=== PATIENT | female | born 1980 | race Caucasian/White ===

== ENCOUNTER 2016-09-27 09:23 | Emergency (ER) | payer BC ==
[~2016-09-27 09:23] MED LIST: IBUP80TA PO; PERCOCET PO; VITAPRTA PO
--- NOTE | 2016-09-27 10:00 | EDDOCDS ---
Nurse's Notes [facility] Name: Jennifer Paris Age: 35 yrs Sex: Female : 1980 Arrival Date: 09/27/2016 Time: 09:23 Bed Triage 3 Private MD: Zeenat Garcia Diagnosis: Anxiety disorder, unspecified Presentation: 09/27 09:28 Presenting complaint: Patient states: for months having episodes of across the chest srm pain and " feels like her heart is stopping then beating to slow or fast." hx of anxiety. pain doesn't radiate. doesn't feel a crushing feeling- more heart racing, beating too slow or too fast. happens suddenly. Aspirin was not taken prior to arrival. Adult Sepsis Screening: The patient does not have new or worsening altered mentation. Patient's respiratory rate is less than 22. Systolic blood pressure is greater than 100. Patient has a qSOFA score of 0- Negative Sepsis Screen. Suicide/Homicide risk assessment- the patient denies having any suicidal and/or homicidal ideations and does not present with any other emotional, behavioral or mental health complaints. Status: Patient is not a office services assistant or dependent. Transition of care: patient was not received from another setting of care. 09:28 Acuity: ROBERTH Level 3 [facility] 09:28 Method Of Arrival: Walkin/Carried/Asstd srm 09:32 Red Flag criteria, patient assessed and is suitable to finish the RCE Process. srm Triage Assessment: 09:31 General: Appears in no apparent distress, Behavior is appropriate for age, cooperative. srm Pain: Pain currently is 0 out of 10 on a pain scale. At worst was 1 out of 10 on a pain scale. Pt Declines HIV testing. Cardiovascular: Chest pain is described as Pain is 1 out of 10 on a pain scale. radiates Does not radiate. episodes are intermittent began 30 minutes prior to arrival. 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 Prozac 20 mg Oral cap 1 cap once daily - PMHx: Anxiety; - PSHx: ; - Social history: Smoking status: Patient uses tobacco products, current some day smoker. No barriers to communication noted, The patient speaks fluent Serbian, Speaks appropriately for age. - Family history: Not pertinent. - : The pt / caregiver states he / she is not on anticoagulants. Home medication list is obtained from the patient. - Exposure Risk Screening:: None identified. Screenin:57 Screening information is obtained from the patient. Fall risk: No risks identified. jo3 Assistance ADL's: requires no assistance with activities of daily living. Abuse/DV Screen: The patient / caregiver reports he/she is: not in a situation that causes fear, pain or injury. Nutritional screening: No deficits noted. Advance Directives: Currently, there is There is no active DNR order. home support is adequate. Assessment: :57 General: Appears in no apparent distress, comfortable, Behavior is appropriate for age, jo3 cooperative. Neurological: Level of Consciousness is awake, alert, Oriented to person, place, time. Respiratory: Airway is patent Respiratory effort is even, unlabored. Derm: Skin is pink, warm & dry. Vital Signs: 09:25 BP 134 / 86; Pulse 83; Resp 18 S; Temp 96.3(O); Pulse Ox 98% on R/A; Weight 93.44 kg dd6 (R); Height 5 ft. 7 in. (170.18 cm) (R); 09:25 Body Mass Index 32.26 (93.44 kg, 170.18 cm) dd6 Vitals: 09:25 Log In Time: September 27, 2016 at 09:23. dd6 09:26 RN notified that patient meets Red Flag criteria. dd6 ED Course: 09:25 Patient visited by Nathaniel Mcbride PCA. dd6 09:25 Zeenat Garcia MD is Private Physician. dd6 09:25 Patient moved to Waiting dd6 09:29 Patient moved to Pre RCE dd6 09:30 Triage Initiated srm 09:32 Patient moved to Triage 3 srm 09:37 Duran Esquivel PA-C is PHCP. cc10 09:37 Inna Arceo MD is Attending Physician. cc10 09:40 Patient visited by Duran Esquivel PA-C. cc10 09:40 Patient visited by Duran Esquivel PA-C. cc10 09:48 EKG done. (by ED staff). Reviewed by Duran Esquivel PA-C. rn1 09:52 Zeenat Garcia MD is Referral Physician. cc10 09:57 The patient / caregiver is instructed regarding the plan of care and ED course. Cardiac jo3 monitoring not applicable on this patient. 09:57 No IV's were initiated during this patient's visit. No procedures done that require jo3 assistance. 09:58 Patient name changed from Jennifer\\S\\\\S\\[place]\\S\\ to Jennifer\\S\\ \\S\\[place]. EDMS 09:59 [facility] Payment Agreement was scanned into [employer] and attached to record. Order Results: There are currently no results for this order. Outcome: 09:52 Discharge ordered by Provider. cc10 09:57 Discharge Assessment: Patient awake, alert and oriented x 3. No cognitive and/or jo3 functional deficits noted. Patient verbalized understanding of disposition instructions. patient administered narcotics - no. The following High Risk Discharge criteria are identified: None. Discharged to home ambulatory, with family. Condition: stable. No special radiology studies were completed. Property sent home with patient. 09:59 Patient left the ED. jo3 Signatures: [facility] Yesika Strong, RN RN srm Derrell Gamboa, Reg Reg lg Kayli Hendricks RN RN jo3 Nathaniel Mcbride, FIRE BOSS FIRE BOSS dd6 Duran Esquivel, PAMaco PAAr Corley rn1 MTDD
--- NOTE | 2016-09-27 10:00 | EDDOCDS ---
Physician Documentation [facility] Name: Jennifer Paris Age: 35 yrs Sex: Female : 1980 Arrival Date: 09/27/2016 Time: 09:23 Bed Triage 3 Private MD: Zeenat Garcia Disposition: 09/27/16 09:52 Discharged to Home/Self Care. Impression: Anxiety disorder, unspecified. - Condition is Stable. - Discharge Instructions: Panic Attacks. - Medication Reconciliation form. - Follow up: Zeenat Garcia MD; When: Call to arrange an appointment; Reason: Wound/Symptom Recheck, Recheck today's complaints, Worsening of conditions, Continuance of care. - Problem is chronic. - Symptoms are unchanged. Historical: - Allergies: no known allergies; - Home Meds: 1. Prozac 20 mg Oral cap 1 cap once daily - PMHx: Anxiety; - PSHx: ; - Social history: Smoking status: Patient uses tobacco products, current some day smoker. No barriers to communication noted, The patient speaks fluent South Korean, Speaks appropriately for age. - Family history: Not pertinent. - : The pt / caregiver states he / she is not on anticoagulants. Home medication list is obtained from the patient. - Exposure Risk Screening:: None identified. 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 7 in. (170.18 cm) (R); 09:25 Body Mass Index 32.26 (93.44 kg, 170.18 cm) dd6 MDM: 09:34 ECG WITH READING ER PHYS+CARDIAG ordered. EDMS 09:50 Financial registration complete. lg 09:59 [facility] Payment Agreement was scanned into [employer] and attached to record. lg Signatures: Dispatcher [employer] EDMS Yesika Strong RN RN srm Ganter, LoriLee, Reg Reg Kayli Hendricks RN RN jo3 Duran Esquivel, PA-C PA-C cc10 The chart was reviewed and I authenticate all verbal orders and agree with the evaluation and treatment provided.Attachments: 09:59 [facility] Payment Agreement lg MTDD
--- NOTE | 2016-09-27 19:28 | ECGEPIP ---
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
--- NOTE | 2016-09-29 11:00 | EDDOCDS ---
Physician Documentation [facility] Name: Jennifer Paris Age: 35 yrs Sex: Female : 1980 Arrival Date: 09/27/2016 Time: 09:23 Bed Triage 3 Private MD: Zeenat Garcia Disposition: 09/27/16 09:52 Discharged to Home/Self Care. Impression: Anxiety disorder, unspecified. - Condition is Stable. - Discharge Instructions: Panic Attacks. - Medication Reconciliation form. - Follow up: Zeenat Garcia MD; When: Call to arrange an appointment; Reason: Wound/Symptom Recheck, Recheck today's complaints, Worsening of conditions, Continuance of care. - Problem is chronic. - Symptoms are unchanged. Historical: - Allergies: no known allergies; - Home Meds: 1. Prozac 20 mg Oral cap 1 cap once daily - PMHx: Anxiety; - PSHx: ; - Social history: Smoking status: Patient uses tobacco products, current some day smoker. No barriers to communication noted, The patient speaks fluent Turkmen, Speaks appropriately for age. - Family history: Not pertinent. - : The pt / caregiver states he / she is not on anticoagulants. Home medication list is obtained from the patient. - Exposure Risk Screening:: None identified. 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 7 in. (170.18 cm) (R); 09:25 Body Mass Index 32.26 (93.44 kg, 170.18 cm) dd6 MDM: 09:34 ECG WITH READING ER PHYS+CARDIAG ordered. EDMS 09:50 Financial registration complete. lg 09:59 [facility] Payment Agreement was scanned into [employer] and attached to record. lg 13:18 T-Sheet-- Draft Copy was scanned into [employer] and attached to record. gb 13:19 ECG/EKG was scanned into [employer] and attached to record. gb Signatures: Dispatcher [employer] EDMS Yesika Strong RN RN [facility] Ellie De La O Reg Reg gb Derrell Gamboa, Reg Reg lg Kayli Hendricks,RN RN jo3 Duran Esquivel, PATanyaC PATanyaC cc10 The chart was reviewed and I authenticate all verbal orders and agree with the evaluation and treatment provided.Attachments: [facility] Payment Agreement lg 13:18 T-Sheet-- Draft Copy gb 13:19 ECG/EKG gb Chart Complete MTDD
--- NOTE | 2016-09-29 11:00 | EDDOCDS ---
Nurse's Notes [facility] Name: Jennifer Helm Age: 35 yrs Sex: Female : 1980 Arrival Date: 09/27/2016 Time: 09:23 Bed Triage 3 Private MD: Zeenat Garcia Diagnosis: Anxiety disorder, unspecified Presentation: 09/27 09:28 Presenting complaint: Patient states: for months having episodes of across the chest srm pain and " feels like her heart is stopping then beating to slow or fast." hx of anxiety. pain doesn't radiate. doesn't feel a crushing feeling- more heart racing, beating too slow or too fast. happens suddenly. Aspirin was not taken prior to arrival. Adult Sepsis Screening: The patient does not have new or worsening altered mentation. Patient's respiratory rate is less than 22. Systolic blood pressure is greater than 100. Patient has a qSOFA score of 0- Negative Sepsis Screen. Suicide/Homicide risk assessment- the patient denies having any suicidal and/or homicidal ideations and does not present with any other emotional, behavioral or mental health complaints. Status: Patient is not a vehicle service attendant or dependent. Transition of care: patient was not received from another setting of care. 09:28 Acuity: ROBERTH Level 3 [facility] 09:28 Method Of Arrival: Walkin/Carried/Asstd srm 09:32 Red Flag criteria, patient assessed and is suitable to finish the RCE Process. srm Triage Assessment: 09:31 General: Appears in no apparent distress, Behavior is appropriate for age, cooperative. srm Pain: Pain currently is 0 out of 10 on a pain scale. At worst was 1 out of 10 on a pain scale. Pt Declines HIV testing. Cardiovascular: Chest pain is described as Pain is 1 out of 10 on a pain scale. radiates Does not radiate. episodes are intermittent began 30 minutes prior to arrival. 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 Prozac 20 mg Oral cap 1 cap once daily - PMHx: Anxiety; - PSHx: ; - Social history: Smoking status: Patient uses tobacco products, current some day smoker. No barriers to communication noted, The patient speaks fluent Slovak, Speaks appropriately for age. - Family history: Not pertinent. - : The pt / caregiver states he / she is not on anticoagulants. Home medication list is obtained from the patient. - Exposure Risk Screening:: None identified. Screenin:57 Screening information is obtained from the patient. Fall risk: No risks identified. jo3 Assistance ADL's: requires no assistance with activities of daily living. Abuse/DV Screen: The patient / caregiver reports he/she is: not in a situation that causes fear, pain or injury. Nutritional screening: No deficits noted. Advance Directives: Currently, there is There is no active DNR order. home support is adequate. Assessment: :57 General: Appears in no apparent distress, comfortable, Behavior is appropriate for age, jo3 cooperative. Neurological: Level of Consciousness is awake, alert, Oriented to person, place, time. Respiratory: Airway is patent Respiratory effort is even, unlabored. Derm: Skin is pink, warm & dry. Vital Signs: 09:25 BP 134 / 86; Pulse 83; Resp 18 S; Temp 96.3(O); Pulse Ox 98% on R/A; Weight 93.44 kg dd6 (R); Height 5 ft. 7 in. (170.18 cm) (R); 09:25 Body Mass Index 32.26 (93.44 kg, 170.18 cm) dd6 Vitals: 09:25 Log In Time: September 27, 2016 at 09:23. dd6 09:26 RN notified that patient meets Red Flag criteria. dd6 ED Course: 09:25 Patient visited by Nathaniel Mcbride PCA. dd6 09:25 Zeenat Garcia MD is Private Physician. dd6 09:25 Patient moved to Waiting dd6 09:29 Patient moved to Pre RCE dd6 09:30 Triage Initiated srm 09:32 Patient moved to Triage 3 srm 09:37 Duran Esquivel PA-C is PHCP. cc10 09:37 Inna Arceo MD is Attending Physician. cc10 09:40 Patient visited by Duran Esquivel PA-C. cc10 09:40 Patient visited by Duran Esquivel PA-C. cc10 09:48 EKG done. (by ED staff). Reviewed by Duran Esquivel PA-C. rn1 09:52 Zeenat Garcia MD is Referral Physician. cc10 09:57 The patient / caregiver is instructed regarding the plan of care and ED course. Cardiac jo3 monitoring not applicable on this patient. 09:57 No IV's were initiated during this patient's visit. No procedures done that require jo3 assistance. 09:58 Patient name changed from Jennifer\\S\\\\S\\[place]\\S\\ to Jennifer\\S\\ \\S\\[place]. EDMS 09:59 [facility] Payment Agreement was scanned into [employer] and attached to record. lg 13:18 T-Sheet-- Draft Copy was scanned into [employer] and attached to record. gb 13:19 ECG/EKG was scanned into [employer] and attached to record. gb 19:42 EKG-ADULT Returned. 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 cc10 09:57 Discharge Assessment: Patient awake, alert and oriented x 3. No cognitive and/or jo3 functional deficits noted. Patient verbalized understanding of disposition instructions. patient administered narcotics - no. The following High Risk Discharge criteria are identified: None. Discharged to home ambulatory, with family. Condition: stable. No special radiology studies were completed. Property sent home with patient. 09:59 Patient left the ED. jo3 Signatures: Dispatcher [employer] EDMS Yesika Strong RN RN [facility] Ellie De La O, Reg Reg gb Derrell Gamboa, Reg Reg lg Kayli Hendricks,RN RN jo3 Nathaniel Mcbride, OVERLOCK COLLAR SETTER OVERLOCK COLLAR SETTER dd6 Duran Esquivel, SAWYERC PATanyaC cc10 Ar Redman rn1 Chart Complete MTDD
--- NOTE | 2016-09-29 11:00 | EDDOCDS ---
Physician Documentation [facility] Name: Jennifer Paris Age: 35 yrs Sex: Female : 1980 Arrival Date: 09/27/2016 Time: 09:23 Bed Triage 3 Private MD: Zeenat Garcia Disposition: 09/27/16 09:52 Discharged to Home/Self Care. Impression: Anxiety disorder, unspecified. - Condition is Stable. - Discharge Instructions: Panic Attacks. - Medication Reconciliation form. - Follow up: Zeenat Garcia MD; When: Call to arrange an appointment; Reason: Wound/Symptom Recheck, Recheck today's complaints, Worsening of conditions, Continuance of care. - Problem is chronic. - Symptoms are unchanged. Historical: - Allergies: no known allergies; - Home Meds: 1. Prozac 20 mg Oral cap 1 cap once daily - PMHx: Anxiety; - PSHx: ; - Social history: Smoking status: Patient uses tobacco products, current some day smoker. No barriers to communication noted, The patient speaks fluent Ugandan, Speaks appropriately for age. - Family history: Not pertinent. - : The pt / caregiver states he / she is not on anticoagulants. Home medication list is obtained from the patient. - Exposure Risk Screening:: None identified. 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 Vital Signs: 09:25 BP 134 / 86; Pulse 83; Resp 18 S; Temp 96.3(O); Pulse Ox 98% on R/A; Weight 93.44 kg / dd6 206 lbs (R); Height 5 ft. 7 in. (170.18 cm) (R); 09:25 Body Mass Index 32.26 (93.44 kg, 170.18 cm) dd6 MDM: 09:34 ECG WITH READING ER PHYS+CARDIAG ordered. EDMS 09:50 Financial registration complete. lg 09:59 [facility] Payment Agreement was scanned into [employer] and attached to record. lg 13:18 T-Sheet-- Draft Copy was scanned into [employer] and attached to record. gb 13:19 ECG/EKG was scanned into [employer] and attached to record. gb Signatures: Dispatcher [employer] EDMS Yesika Strong RN RN [facility] Ellie De La O Reg Reg gb Derrell Gamboa, Reg Reg lg Kayli Hendricks,RN RN jo3 Duran Esquivel, PATanyaC PATanyaC cc10 The chart was reviewed and I authenticate all verbal orders and agree with the evaluation and treatment provided.Attachments: [facility] Payment Agreement lg 13:18 T-Sheet-- Draft Copy gb 13:19 ECG/EKG gb Chart Complete MTDD
== END 2016-09-27 09:59 | disposition home or self-care (01) ==
LOC: M ED 09:23
DX: F41.0 Panic disorder [episodic paroxysmal anxiety] (principal); Z72.0 Tobacco use; Z79.899 Other long term (current) drug therapy

== ENCOUNTER → 2016-10-11 | Outpatient (REF) | payer BC | LOC: M LAB REF 16:44 | PROVIDERS: ATTEND Physician Assistant | DX: Z20.89 Contact with and (suspected) exposure to other communicable diseases (principal) ==

== ENCOUNTER → 2017-03-12 | Outpatient (CLI) | payer BC ==
[~2017-03-12] MED LIST changes: +PROZ20CA11 PO
[2017-03-12 13:14] LABS: BASO % 0.5 % (0.0-1.0); EOS # 0.2 K/mm3 (0.0-0.50); EOS % 3.5 % (0.0-3.0); LARGE UNSTAINED CELL # 0.1 K/mm3 (0.0-0.4); LARGE UNSTAINED CELL % 2.4 % (0.0-4.0); LYMPH # 2.1 K/mm3 (1.5-4.5); LYMPH % 36.5 % (24.0-44.0); MEAN CORPUSCULAR HEMOGLOBIN 30.2 pg (27.0-33.0); MEAN CORPUSCULAR HGB CONC 34.2 g/dl (32.0-36.5); MEAN CORPUSCULAR VOLUME 88.3 fl (80.0-96.0); MONO # 0.4 K/mm3 (0.0-0.8); MONO % 8.2 % (0.0-5.0); NEUTROPHILS # 2.6 K/mm3 (1.8-7.7); NEUTROPHILS % 48.8 % (36.0-66.0); PLATELET COUNT, AUTOMATED 252 k/mm3 (150-450); RED CELL DISTRIBUTION WIDTH 12.9 % (11.5-14.5); WHITE BLOOD COUNT 5.3 K/mm3 (4.0-10.0)
[2017-03-12 13:55] LABS: ALBUMIN 3.8 GM/DL (3.2-5.2); ALBUMIN/GLOBULIN RATIO 1.27 (1.00-1.93); ALKALINE PHOSPHATASE 51 U/L (45-117); ALT/SGPT 19 U/L (12-78); ANION GAP 5 MEQ/L (8-16); AST/SGOT 12 U/L (15-37); BILIRUBIN,TOTAL 0.3 MG/DL (0.2-1.0); BLOOD UREA NITROGEN 7 MG/DL (7-18); CALCIUM LEVEL 8.5 MG/DL (8.5-10.1); CARBON DIOXIDE LEVEL 28 MEQ/L (21-32); CHLORIDE LEVEL 106 MEQ/L (98-107); CREATININE FOR GFR 0.65 MG/DL (0.55-1.02); FREE T4 0.98 NG/DL (0.76-1.46); GLOMERULAR FILTRATION RATE > 60.0 (>60); GLUCOSE, FASTING 86 MG/DL (70-105); POTASSIUM SERUM 4.5 MEQ/L (3.5-5.1); SODIUM LEVEL 139 MEQ/L (136-145); TOTAL PROTEIN 6.8 GM/DL (6.4-8.2)
== END ==
LOC: M SMT 08:51
PROVIDERS: ATTEND Family Medicine
DX: Z13.29 Encounter for screening for other suspected endocrine disorder (principal); Z13.0 Encounter for screening for diseases of the blood and blood-forming organs and certain disorders involving the immune mechanism

== ENCOUNTER 2017-03-18 08:45 | Emergency (ER) | payer BC ==
[~2017-03-18] VITALS: Ht 170.2 cm; Wt 84.1 kg
[~2017-03-18 08:45] MED LIST changes: -PROZ20CA11 PO
[2017-03-18] MEDS ORDERED: PROZ20CA11 PO (08:53)
[2017-03-18 10:28] LABS: BASO # 0.1 K/mm3 (0.0-0.2); BASO % 0.9 % (0.0-1.0); EOS # 0.3 K/mm3 (0.0-0.50); EOS % 3.7 % (0.0-3.0); LARGE UNSTAINED CELL # 0.2 K/mm3 (0.0-0.4); LARGE UNSTAINED CELL % 2.1 % (0.0-4.0); LYMPH # 2.2 K/mm3 (1.5-4.5); MEAN CORPUSCULAR HEMOGLOBIN 30.2 pg (27.0-33.0); MEAN CORPUSCULAR HGB CONC 34.4 g/dl (32.0-36.5); MEAN CORPUSCULAR VOLUME 87.8 fl (80.0-96.0); MONO # 0.6 K/mm3 (0.0-0.8); NEUTROPHILS # 3.7 K/mm3 (1.8-7.7); NEUTROPHILS % 53.4 % (36.0-66.0); PLATELET COUNT, AUTOMATED 261 k/mm3 (150-450); RED CELL DISTRIBUTION WIDTH 12.6 % (11.5-14.5)
[2017-03-18 10:36] LABS: ANION GAP 4 MEQ/L (8-16); BLOOD UREA NITROGEN 11 MG/DL (7-18); CALCIUM LEVEL 9.2 MG/DL (8.5-10.1); CARBON DIOXIDE LEVEL 28 MEQ/L (21-32); CHLORIDE LEVEL 107 MEQ/L (98-107); CREATININE FOR GFR 0.76 MG/DL (0.55-1.02); GLOMERULAR FILTRATION RATE > 60.0 (>60); GLUCOSE, FASTING 76 MG/DL (70-105); POTASSIUM SERUM 4.3 MEQ/L (3.5-5.1); SODIUM LEVEL 139 MEQ/L (136-145)
--- NOTE | 2017-03-18 10:45 | REP ---
Portable chest, single AP view, the patient sitting, 10:36 a.m.: There are no comparisons. The lung zavala are clear. The cardiac size is normal. The elaine, mediastinum, and bony thorax are unremarkable. Impression: Negative portable chest. Signed by Kerwin Gifford MD 03/18/2017 10:36 A
[2017-03-18 11:11] VITALS: BP 118/66
--- NOTE | 2017-03-18 13:43 | ECGEPIP ---
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
== END 2017-03-18 11:17 | disposition home or self-care (01) ==
LOC: M ED 08:45
DX: R07.89 Other chest pain (principal); F43.0 Acute stress reaction; F17.210 Nicotine dependence, cigarettes, uncomplicated; Z79.899 Other long term (current) drug therapy

== ENCOUNTER → 2017-05-20 | Outpatient (REF) | payer BC ==
[~2017-05-20] MED LIST changes: +PROZ20CA11 PO
== END ==
LOC: M LAB REF 13:50
PROVIDERS: ATTEND Advanced Practice Midwife
DX: Z12.4 Encounter for screening for malignant neoplasm of cervix (principal)

== ENCOUNTER → 2017-05-29 | Outpatient (CLI) | payer BC, SELFPAY ==
--- NOTE | 2017-05-30 03:04 | REP ---
Clinical: Right lower quadrant pelvic pain . Technique: Transabdominal pelvic ultrasound followed by transvaginal examination for better evaluation of the endometrium and adnexa with color Doppler evaluation of the ovaries. Findings: Bladder is unremarkable and measures 9.0 x 8.7 x 8.5 cm . Normal anteverted uterus measures 8.8 x 3.1 x 3.9 cm . The endometrial complex measures 5.4 mm thickness. No discrete uterine or endometrial abnormalities are appreciated. Bilateral ovaries are normal in appearance and vascularity without evidence for torsion. Right ovary measures 2.8 x 2.5 x 1.9 cm ; R I = 0.40 . Left ovary measures 3.1 x 2.4 x 3.1 cm ; R I = 0.56 . No pelvic fluid or adnexal mass lesion . Impression: 1. Normal pelvic ultrasound Signed by Cory Rodriguez MD 05/30/2017 02:56 A
== END ==
LOC: M RAD 15:34
PROVIDERS: ATTEND Advanced Practice Midwife
DX: R10.31 Right lower quadrant pain (principal)